=== PATIENT | male | born 1985 | race Caucasian/White ===

== ENCOUNTER 2023-10-05 23:31 | Emergency (ER) | payer OTHER ==
[~2023-10-05] VITALS: Ht 177.8 cm; Wt 80.0 kg
[2023-10-05 23:35] VITALS: BP 132/85; PULSE 67; RESP 16; TEMP 96.5; O2SAT 99
== END 2023-10-06 01:24 | disposition home or self-care (01) ==
LOC: ER 23:32
DX: Z77.21 Contact with and (suspected) exposure to potentially hazardous body fluids (principal)
CPT/HCPCS: 36415; 86703; 86704; 86705; 99281